=== PATIENT | male | born 1980 | race Two or more races ===

== ENCOUNTER 2016-11-07 16:04 | Emergency (ER) | payer SELFPAY ==
[~2016-11-07] VITALS: Ht 170.2 cm; Wt 59.0 kg
[2016-11-07 16:15] VITALS: BP 110/66
== END 2016-11-07 20:22 | disposition left against medical advice (07) ==
LOC: ER 16:15
DX: F12.90 Cannabis use, unspecified, uncomplicated (principal); Z53.21 Procedure and treatment not carried out due to patient leaving prior to being seen by health care provider
CPT/HCPCS: 80307